=== PATIENT | female | born 1975 | race Hispanic/Latino ===

== ENCOUNTER 2020-08-06 19:07 | Emergency (ER) | payer OTHER, SELFPAY ==
[2020-08-06] MEDS ORDERED: ONDANSETRON 4MG INJ ONE (19:32)
[2020-08-06] MEDS ORDERED: CLINDAMYCIN IVPB 600MG/50ML 50 ML IV ONE (19:33)
[2020-08-06] MEDS ORDERED: MORPHINE 2 MG SYG ONE ×2 (19:33→21:34)
[2020-08-06] MEDS ORDERED: 0.9%NACL 1000ML 1,000 ML IV ONE (19:34)
[2020-08-06 20:01] LABS: BASOPHILS % (AUTO) 0.5 % (0.0-5.0); HEMATOCRIT 36.5 % (36-48); LYMPHOCYTES % (AUTO) 19.9 % (21.0-51.0); MEAN CORPUSCULAR HGB CONC 32.3 g/dL (32.0-36.0); MEAN CORPUSCULAR VOLUME 80.6 fL (79-99); MONOCYTES % (AUTO) 6.1 % (3.0-13.0); NEUTROPHILS % (AUTO) 71.1 % (40.0-77.0); PLATELET COUNT (AUTO) 298 K/uL (130-400); RED BLOOD CELL COUNT(AUTO) 4.53 MIL/uL (4.00-5.50); WHITE BLOOD COUNT (AUTO) 13.6 K/uL (4.8-10.8)
[2020-08-06 20:15] LABS: CREATININE 0.7 mg/dL (0.5-1.5); POTASSIUM 3.3 mmol/L (3.5-5.1)
[2020-08-06 20:26] LABS: ALBUMIN 3.5 g/dL (3.5-5.0); BILIRUBIN,TOTAL 0.1 mg/dL (0.2-1.0); TOTAL PROTEIN, SERUM 7.7 g/dL (6.0-8.3)
[2020-08-06] MEDS ORDERED: POTASSIUM BICARB/CIT AC 25 MEQ TABLET.EFF ONE (20:58)
[2020-08-06] MEDS ORDERED: IOHEXOL-350 75 ML VIAL IV ONE (21:57)
== END 2020-08-06 22:15 | disposition home or self-care (01) ==
LOC: EDH 19:07
DX: L02.414 Cutaneous abscess of left upper limb (principal); Z98.51 Tubal ligation status
CPT/HCPCS: 10060; 36415; 73201; 80053; 82948; 83605; 84702; 85025; 86140; 87040; 87070; 87076; 96365; 96375; 99285; J2405; J3490; J7030; Q9967